=== PATIENT | female | born 1990 | race Hispanic/Latino ===

== ENCOUNTER → 2024-02-15 09:41 | Outpatient (REF) | payer OTHER, SELFPAY ==
[2024-02-15 11:10] LABS: % Basophils 0.3 % (0-2); % Eosinophils 2.8 % (0-6); % Immature Granulocytes 0.2 % (0-0.5); % Lymphocytes 25.2 % (20.5-51.1); % Monocytes 6.4 % (1.7-9.3); % Neutrophils 65.1 % (42.2-75.2); Absolute Eosinophils 0.3 10^3/uL (0-0.7); Absolute Lymphocytes 2.2 10^3/uL (1.2-3.4); Absolute Monocytes 0.6 10^3/uL (0.1-0.6); Absolute Neutrophils 5.8 10^3/uL (1.4-6.5); Hematocrit 37.6 % (37.0-47.0); Hemoglobin 12.7 g/dL (12.0-16.0); Mean Corp Hgb Conc. 33.8 g/dL (33.0-37.0); Mean Corpuscular Hgb 29.1 pg (27.0-31.0); Mean Corpuscular Volume 86.2 fL (81.0-99.0); Mean Platelet Volume 10.9 fL (7.4-10.4); Nucleated Red Blood Cells % 0 %; Platelet Count 229 10^3/uL (130-400); Red Blood Cell Count 4.36 10^6/uL (4.20-5.40); Red Cell Dist. Width 13.3 % (11.5-14.5); White Blood Cell Count 8.9 10^3/uL (4.8-10.8)
[2024-02-15 11:44] LABS: ALT (SGPT) 11 U/L (0-35); AST (SGOT) 19 U/L (14-36); Albumin 4.6 g/dl (3.5-5.0); Alkaline Phosphatase 56 U/L (38-126); Blood Urea Nitrogen 15 mg/dl (7-17); Calcium 9.5 mg/dl (8.4-10.2); Carbon Dioxide 24 mmol/L (22-30); Chloride 106 mmol/L (98-107); Glucose 110 mg/dl (70-99); HDL Cholesterol 44 mg/dl; LDL Cholesterol, Calculated 129 mg/dl; Potassium 4.5 mmol/L (3.5-5.1); Sodium 138 mmol/L (135-145); Total Bilirubin 0.5 mg/dl (0.2-1.3); Total Cholesterol 214 mg/dl (50-199); Total Protein 7.6 g/dl (6.3-8.2); Triglyceride 208 mg/dl (10-149); Very Low Density Lipoprotein 41 mg/dl (0-30); eGFR > 60.00
[2024-02-15 12:12] LABS: TSH Reflex To Free T4 1.83 uIU/ml (0.47-4.68)
[2024-02-15 13:06] LABS: Glycohemoglobin (HgbA1c) 6.2 % (4.0-5.6)
== END ==
LOC: REG 09:41
PROVIDERS: ATTENDING PHYSICIAN Nurse Practitioner Acute Care
DX: Z00.00 Encounter for general adult medical examination without abnormal findings (principal)
CPT/HCPCS: 36415; 80053; 80061; 83036; 84443; 85025

== ENCOUNTER → 2024-04-16 09:38 | Outpatient (REF) | payer OTHER, SELFPAY | LOC: CLINIC 09:38 | PROVIDERS: ATTENDING PHYSICIAN Physician Assistant Medical | DX: Z01.419 Encounter for gynecological examination (general) (routine) without abnormal findings (principal) | CPT/HCPCS: G0123 ==

== ENCOUNTER 2025-06-25 11:33 | Emergency (ER) | payer SELFPAY ==
[2025-06-25 11:52] VITALS: BP 119/78
--- NOTE | 2025-06-25 13:58 | ED.GENMED ---
History of Present Illness
General
Chief Complaint: Eye Problems
Time Seen by Provider: 06/25/25 13:46
History of Present Illness
History of Present Illness:
35 female presents to the emergency department for evaluation of left eye discomfort and itching. She notes crusty discharge on the eye when waking up in the morning. Reports occasional blurry vision but this is not persistent. No photophobia or
headaches. No trauma to the eye. Does not wear contacts
Review of Systems
Review of Systems
Allergies reviewed?: Yes
All Other Systems: ROS reviewed and negative except as documented in HPI and ROS
Phy Exam
Physical Exam
Physical Exam:
GEN: Well appearing, NAD, WDWN
HEENT: Oral mucosa moist, no scleral icterus. Moderate injection to the left eye with no limbic flush. No hyphema or hypopyon. Normal extraocular motions in all [place]. No active purulent discharge. No preauricular adenopathy, no visible
foreign body or corneal abrasion
Cardiac: Regular rate
Lung: No respiratory distress, no tachypnea
MSK: No gross deformity or injuries
Skin: Good color, no pallor or jaundice, no rashes
Neuro: AO x3, moves all extremities freely
Psych: Calm, cooperative
Course
Vital Signs
Initial and Last Documented VS:
Initial Vital Signs
Temp Pulse Resp BP Pulse Ox
98.6 F 70 18 119/78 99
06/25/25 11:52 06/25/25 11:52 06/25/25 11:52 06/25/25 11:52 06/25/25 11:52
Last Documented Vital Signs
Temp Pulse Resp BP Pulse Ox
98.6 F 70 18 119/78 99
06/25/25 11:52 06/25/25 11:52 06/25/25 11:52 06/25/25 11:52 06/25/25 14:01
MDM/Problems Addressed
MDM/Problems Addressed:
Likely acute conjunctivitis, will treat with topical antibiotics
*Pulse Oximetry
SaO2: 99
Oxygen Mode of Delivery: Room air
Patient hypoxic: no
*Critical Care Note
Total Time (30-74mins, 75-104mins- exclusive of procedures): Not Applicable
ED Attending Note
-
Portions of this chart may have been created with voice recognition software.� Occasional wrong word or��sound alike� substitutions may have occurred due to the inherent limitations of voice recognition software.
Discharge Plan
Departure
Patient Disposition: Home (Routine Discharge)
Date of Disposition: 06/25/25
Time of Disposition: 13:59
Patient with high blood pressure during this ER visit?: No
Discharge Problem:
Acute conjunctivitis of left eye
Instructions: Conjunctivitis (Pinkeye) (DC)
Prescriptions:
New
polymyxin B sulf-trimethoprim 10,000 unit- 1 mg/mL drops
2 drp ophthalmic (eye) Q4 Qty: 10 0RF
Rx Instructions:
2gtt q4h while awake x 2 days, then 2gtt q6 x 5d
Interventions
Interventions:
*General Assessment Last Done: 06/25/25 11:52
*Nursing Disposition Last Done: 06/25/25 14:14
Discharge Date and Time
Discharge Date/Time: 06/25/25 14:15
Print Language: OCCITAN
== END 2025-06-25 14:15 | disposition home or self-care (01) ==
LOC: EMR 11:33
PROVIDERS: EMERGENCY PHYSICIAN Emergency Medicine
DX: H10.32 Unspecified acute conjunctivitis, left eye (principal)
CPT/HCPCS: 99282